=== PATIENT | male | born 1955 | race Caucasian/White ===

== ENCOUNTER 2017-04-17 07:05 | Day surgery (SDC) | payer BC ==
[~2017-04-17 07:05] MED LIST: Lactated Ringers 1,000 ML IV SCH
[2017-04-17] MEDS ORDERED: fentaNYL 100 MCG/2 ML SDV ONE (07:49)
[2017-04-17] MEDS ORDERED: Propofol 200 MG/20 ML SDV ONE (07:49)
[2017-04-17 09:22] VITALS: BP 144/84
--- NOTE | 2017-04-18 09:16 | OR ---
PREOPERATIVE DIAGNOSIS: Positive fecal immunochemical test. Family history of polyps. POSTOPERATIVE DIAGNOSIS: Sigmoid polyp removed. PROCEDURE PROPOSED: Total flexible colonoscopy. PROCEDURE DONE: Total flexible colonoscopy with polypectomy x1. INDICATION: This is a 61-year-old gentleman who comes in for his first colonoscopic exam. He denies any symptomatology, but he has a family history of a mother and a sibling with polyps. He was also found to have a positive FIT test. TECHNIQUE: The patient was brought to the endoscopy suite and placed in left lateral decubitus position. He was sedated per Anesthesia with propofol, and the flexible video colonoscope was then passed transanally and under visualization advanced to the cecum. Examination revealed a normal ascending, transverse, and descending colon. In the low sigmoid at about 15 to 18 cm, there was a small polyp removed with cold snare technique and retrieved with suction, and the remainder of the rectosigmoid was normal. He did have some mild internal and external hemorrhoids, and the scope was then withdrawn. He tolerated the procedure well. IMPRESSION: 1. Low sigmoid polyp at 15 cm, removed. 2. Family history of polyps. PLAN: He will be sent a letter with pathology report. I felt that he should continue with colonic surveillance every 5 years hereafter. SCM: 04/17/2017 08:44:34 MODL: 04/17/2017 13:06:46 /[id number]
--- NOTE | 2017-05-01 10:06 | LETTER ---
05/01/2017 RE: FLORENCIA SAM : 1955 Dear Florencia, The polyp removed from your colon was a developing tubular adenoma which is considered a precancerous-type polyp. There were no worrisome findings within this polyp. I feel that based on your family history of polyps and now personal history of polyps that you should have your colon evaluated every 5 years. If you have any further questions regarding this feel free to call. Respectfully,
== END 2017-04-17 10:55 | disposition home or self-care (01) ==
LOC: VM.SDS 07:05
PROVIDERS: ATTEND Surgery
DX: Z12.11 Encounter for screening for malignant neoplasm of colon (principal); D12.5 Benign neoplasm of sigmoid colon; Z83.71 Family history of colonic polyps; K64.8 Other hemorrhoids; K64.4 Residual hemorrhoidal skin tags; I10 Essential (primary) hypertension; E78.5 Hyperlipidemia, unspecified; G45.9 Transient cerebral ischemic attack, unspecified; Z88.0 Allergy status to penicillin; Z79.82 Long term (current) use of aspirin; Z79.899 Other long term (current) drug therapy
CPT/HCPCS: 45385; J2704; J3010; J7120

== ENCOUNTER 2019-04-10 17:08 | Emergency (ER) | payer BC ==
[2019-04-10] MEDS ORDERED: Take Home: Doxycycline 100 MG Tab, 4 Tab Pack PO ONE (17:46)
[2019-04-10 18:26] VITALS: BP 166/93
--- NOTE | 2019-04-11 06:24 | EDM.PDOC ---
ED HPI GENERAL MEDICAL PROBLEM - General Chief Complaint: Bite:Animal, Insect Stated Complaint: CAT BITE Time Seen by Provider: 04/10/19 17:08 Source of Information: Reports: Patient History Limitations: Reports: No Limitations - History of Present Illness INITIAL COMMENTS - FREE TEXT/NARRATIVE: Pt. presents to ER with complaints of cat bite to R hand. He states that it was from his cat, who is vaccinated for rabies. He states that this happened this AM , and he noticed increased swelling to the area throughout the day today, and presents to ER. Denies any fever or chills. No chest pain or shortness of breath. He states that he was only bit once. Onset Date: 04/11/19 Left Hand Pain Score (Numeric/FACES): 1 - Related Data Allergies Allergy/AdvReac Type Severity Reaction Status Date / Time Penicillins Allergy Hives Verified 04/10/19 18:30 Home Meds: Home Meds Aspirin 325 mg PO DAILY 02/12/14 [History] Multivitamin [Multi Vitamin Daily] 1 each PO DAILY 02/12/14 [History] atorvaSTATin Calcium [Atorvastatin Calcium] 10 mg PO DAILY 01/03/15 [History] Ubidecarenone [Coq-10] 200 mg PO DAILY 04/10/17 [History] amLODIPine [Norvasc] 10 mg PO DAILY 04/10/17 [History] Past Medical History - Past Health History Medical/Surgical History: Denies Medical/Surgical History HEENT History: Reports: None Cardiovascular History: Reports: High Cholesterol, Hypertension, Other (See Below) Other Cardiovascular History: SMALL VESSEL DISEASE Respiratory History: Reports: Other (See Below) Other Respiratory History: lung infection Gastrointestinal History: Reports: None Musculoskeletal History: Reports: None Neurological History: Reports: TIA Psychiatric History: Reports: None Endocrine/Metabolic History: Reports: None Hematologic History: Reports: None Immunologic History: Reports: None Oncologic (Cancer) History: Reports: None Dermatologic History: Reports: None - Past Surgical History Head Surgeries/Procedures: Reports: None HEENT Surgical History: Reports: None Cardiovascular Surgical History: Reports: None Respiratory Surgical History: Reports: None GI Surgical History: Reports: None Male Surgical History: Reports: None Endocrine Surgical History: Reports: None Neurological Surgical History: Reports: None Musculoskeletal Surgical History: Reports: Other (See Below) Other Musculoskeletal Surgeries/Procedures:: nibs of middle 3rd and 4Th hand didget removed Oncologic Surgical History: Reports: None Dermatological Surgical History: Reports: None Social & Family History - Tobacco Use Smoking Status *Q: Unknown Ever Smoked ED ROS GENERAL - Review of Systems Review Of Systems: See Below Constitutional: Reports: No Symptoms HEENT: Reports: No Symptoms Respiratory: Reports: No Symptoms Cardiovascular: Reports: No Symptoms Endocrine: Reports: No Symptoms GI/Abdominal: Reports: No Symptoms : Reports: No Symptoms Musculoskeletal: Reports: Other (pain to area of 2nd digit R hand over MCP joint.) Skin: Reports: No Symptoms Neurological: Reports: No Symptoms Psychiatric: Reports: No Symptoms Hematologic/Lymphatic: Reports: No Symptoms Immunologic: Reports: No Symptoms ED EXAM, ANIMAL BITE - Physical Exam Exam: See Below Exam Limited By: No Limitations General Appearance: Alert, WD/WN, No Apparent Distress Respiratory/Chest: No Respiratory Distress, Lungs Clear, Normal Breath Sounds, No Accessory Muscle Use, Chest Non-Tender Cardiovascular: Normal Peripheral Pulses, Regular Rate, Rhythm, No Edema, No Gallop, No JVD, No Murmur, No Rub Extremities: Other (erythema and edema over MCP joint of 2nd digit R hand.) Course - Vital Signs Last Recorded V/S: Last Vital Signs Temp 36.9 C 04/10/19 17:08 Pulse 75 04/10/19 17:08 Resp 16 04/10/19 17:08 BP 166/93 H 04/10/19 17:08 Pulse Ox 98 04/10/19 17:08 - Orders/Labs/Meds Meds: Medications Discontinued Medications Generic Name Dose Route Start Last Admin Trade Name Freq PRN Reason Stop Dose Admin Doxycycline Monohydrate 1 packet 04/10/19 17:46 04/10/19 17:58 Take Home: Doxycycline 100 Mg, 4 Tab Pack PO 04/10/19 17:47 1 packet ONETIME ONE Administration Departure - Departure Time of Disposition: 17:56 Disposition: Home, Self-Care 01 Clinical Impression: Cat bite of hand - Discharge Information Instructions: Animal Bite, Adult, [id number], Doxycycline tablets or capsules , Pasteurella Multocida Infection, Probiotics Referrals: Judith Rubin DO [Primary Care Provider] - Forms: ED Department Discharge Additional Instructions: Doxycycline 100mg 1 tablet twice daily for 10 days. Take 2 doses today-one dose now, one at bedtime. Tylenol and ibuprofen for discomfort. If it is a lot worse tomorrow, return to the ER. It will take a while for the medication to work, however. - Assessment/Plan Plan: Doxycycline 100mg 1 tablet twice daily for 10 days. Take 2 doses today-one dose now, one at bedtime. Tylenol and ibuprofen for discomfort. If it is a lot worse tomorrow, return to the ER.
== END 2019-04-10 17:56 | disposition home or self-care (01) ==
LOC: VM.ED 17:08
DX: S61.451A Open bite of right hand, initial encounter (principal); E78.00 Pure hypercholesterolemia, unspecified; I10 Essential (primary) hypertension; Z88.0 Allergy status to penicillin; Z79.82 Long term (current) use of aspirin; Z79.899 Other long term (current) drug therapy; Z86.73 Personal history of transient ischemic attack (TIA), and cerebral infarction without residual deficits; W55.01XA Bitten by cat, initial encounter
CPT/HCPCS: 99282; A9270

== ENCOUNTER 2023-01-24 12:29 | Day surgery (SDC) | payer MEDICARE, OTHER ==
[2023-01-24] MEDS ORDERED: Propofol 200 MG/20 ML SDV ONE ×2 (13:24→13:53)
[2023-01-24] MEDS ORDERED: fentaNYL 100 MCG/2 ML SDV ONE (13:24)
[2023-01-24 14:28] VITALS: BP 157/76; PULSE 72
== END 2023-01-24 15:20 | disposition home or self-care (01) ==
LOC: VM.SDS 12:29
PROVIDERS: ATTEND Family Medicine
DX: Z12.11 Encounter for screening for malignant neoplasm of colon (principal); D12.0 Benign neoplasm of cecum; D12.8 Benign neoplasm of rectum; D12.6 Benign neoplasm of colon, unspecified; K57.30 Diverticulosis of large intestine without perforation or abscess without bleeding; I10 Essential (primary) hypertension; E78.00 Pure hypercholesterolemia, unspecified; I25.10 Atherosclerotic heart disease of native coronary artery without angina pectoris; Z80.0 Family history of malignant neoplasm of digestive organs; Z86.73 Personal history of transient ischemic attack (TIA), and cerebral infarction without residual deficits; Z79.82 Long term (current) use of aspirin; Z79.899 Other long term (current) drug therapy; Z88.0 Allergy status to penicillin; Z87.891 Personal history of nicotine dependence
CPT/HCPCS: 00811; 88305; J2704; J3010; J7120

== ENCOUNTER 2023-05-08 08:20 | Emergency (ER) | payer MEDICARE, OTHER ==
[2023-05-08 08:56] LABS: BASOPHILS ABSOLUTE AUTO 0.1 x10^3/uL (0.0-0.2); BASOPHILS PERCENT AUTO 0.5 % (0.2-1.2); EOSINOPHILS ABSOLUTE AUTO 0.2 x10^3/uL (0.0-0.5); EOSINOPHILS PERCENT AUTO 2.3 % (0.0-4.0); HEMATOCRIT 48.4 % (40.0-52.0); HEMOGLOBIN 16.7 g/dL (14.0-18.0); IMMATURE GRAN ABSOLUTE AUTO 0.02 x10^3/uL (0.00-0.07); LYMPHOCYTES ABSOLUTE AUTO 2.3 x10^3/uL (1.0-4.8); LYMPHOCYTES PERCENT AUTO 21.9 % (25.0-50.0); MEAN CORPUSCULAR HEMOGLOBIN 30.4 pg (26.0-32.0); MEAN CORPUSCULAR HGB CONC 34.5 g/dL (32.0-36.0); MONOCYTES ABSOLUTE AUTO 1.1 x10^3/uL (0.0-0.8); MONOCYTES PERCENT AUTO 10.8 % (2.0-11.0); NEUTROPHILS ABSOLUTE AUTO 6.8 x10^3/uL (1.8-7.7); NEUTROPHILS PERCENT AUTO 64.3 % (50.0-80.0); PLATELET COUNT,PLT 239 x10^3/uL (130-400); WHITE BLOOD CELL COUNT,WBC 10.6 x10^3/uL (4.0-10.0)
[2023-05-08] MEDS: Aspirin 81 MG Tab.Chew PO ONE (09:04)
[2023-05-08 09:11] LABS: A/G RATIO 1.03; ALBUMIN 3.7 g/dL (3.4-5.0); BILIRUBIN TOTAL 0.4 mg/dL (0.2-1.0); C-REACTIVE PROTEIN 0.51 mg/dL (<=0.30); CALCIUM 9.6 mg/dL (8.5-10.1); EST CRCL DRUG DOSING (CG) 56.9 mL/min; POTASSIUM,K 4.3 mmol/L (3.5-5.1); PROTEIN TOTAL,TP 7.3 g/dL (6.4-8.2)
[2023-05-08 09:12] LABS: ANION GAP 10.3 mmol/L (5-15)
[2023-05-08] MEDS: Nitroglycerin 0.4 MG Tab.SL SL PRN (09:15)
[2023-05-08 09:36] LABS: INR 0.9 (0.9-1.1); PROTHROMBIN TIME 9.8 SEC (9.5-12.2); PTT,PARTIAL THROMBOPLSTIN TIME 28.3 SEC (23.6-33.6)
[2023-05-08] MEDS: Heparin Sodium 5,000 Units/ML Vial IVPUSH ONE (09:43)
[2023-05-08] MEDS: Heparin Sodium/0.45% NaCl 25,000 UNITS/500 ML BAG IV SCH ×2 (09:44→09:48)
[2023-05-08 10:39] VITALS: BP 142/81; PULSE 76
== END 2023-05-08 10:15 | disposition short-term general hospital (02) ==
LOC: VM.ED 08:20
DX: I21.4 Non-ST elevation (NSTEMI) myocardial infarction (principal); E78.00 Pure hypercholesterolemia, unspecified; I10 Essential (primary) hypertension; Z88.0 Allergy status to penicillin; Z79.82 Long term (current) use of aspirin; Z79.899 Other long term (current) drug therapy; Z87.891 Personal history of nicotine dependence
CPT/HCPCS: 71046; 80053; 82550; 84484; 85025; 85610; 85730; 86140; 93005; 93010; 96365; 96376; 99284; 99285; A9270; J1644